=== PATIENT | male | born 1960 | race African-American/Black ===

== ENCOUNTER → 2019-09-26 | Emergency (ER) | payer OTHER ==
[~2019-09-26] VITALS: Ht 188 cm; Wt 104.3 kg
[2019-09-26 13:40] VITALS: BP 142/78
--- NOTE | 2019-09-26 13:40 | NUR ---
ED Nurse Note: Pt was brought in to ED from [facility] d/t s/p unwitnessed fall today at 1100. Pt is AOx1, disoriented but calm. Per EMS, skin's intact/no bleeding noted post fall. Fall happened when pt was on wheelchair, pt landed affecting his RT lateral side. Pt's a FULL CODE. Has hx of CVA with RT side weakness. Placed on bed, safety measures in placed.
--- NOTE | 2019-09-26 13:47 | NUR ---
ED Nurse Note: ERPA at bedside.
--- NOTE | 2019-09-26 14:15 | NUR ---
ED Nurse Note: pt taken to CT via [facility].
--- NOTE | 2019-09-26 15:15 | Diagnostic Imaging Report ---
EXAM: CT CT Head no Contrast INDICATION: Trauma and head pain. TECHNIQUE: Axial images of the brain were obtained with subsequent sagittal and coronal reformats. All CT scans at this facility are performed using dose modulation techniques as appropriate to a performed exam including the following: automated exposure control with adjustment of the mA and/or kV according to patient size. COMPARISON STUDY: None. RADIATION DOSE: CTDIvol: 53.4 mGy DLP: 1018.8 mGy-cm Dose information generated by the CT scanner is available in PACS. FINDINGS: There is age related senescent changes with ventricular and sulcal prominence. White matter micro-ischemic changes noted. There is a small scalp hematoma noted at the right parietal vertex. There is no acute large territory cortical infarct, hemorrhage, mass effect or shift. Small old lacunar infarct noted in the left aspect of the kel. Punctate cortical calcification right frontal lobe likely related to old infection. Ventricles and cisterns as well as brainstem and posterior fossa appear unremarkable. The sellar region is normal. There is minimal fluid in the ethmoid sinus. Mastoid air cells and bony calvarium are intact. IMPRESSION: Age related senescent changes. No acute intracranial traumatic injury. Old lacunar infarcts left aspect of the kel. Punctate cortical calcification right frontal lobe likely related to old infection. Small scalp hematoma right parietal vertex.
--- NOTE | 2019-09-26 15:50 | Diagnostic Imaging Report ---
EXAM: CT CT Chest Abdomen Pelvis wo Con INDICATION: Trauma. Chest and abdominal pain. COMPARISON: None TECHNIQUE: Axial images were obtained through the chest, abdomen and pelvis without intravenous contrast. Sagittal and coronal reformats are generated. All CT scans at this facility are performed using dose modulation techniques as appropriate to a performed exam including the following: automated exposure control with adjustment of the mA and/or kV according to patient size. RADIATION DOSE: CTDIvol: 8.8 mGy DLP: 615.6 mGy-cm Dose information generated by the CT scanner is available in PACS. CHEST FINDINGS: Images through the chest limited by respiratory motion artifacts. Mild dependent densities noted in both lungs likely atelectasis. There is scattered bilateral paraseptal emphysema. No alveolar consolidation noted. Cardiac silhouette is within normal limits. There is a small pericardial effusion. There is no pathologic size adenopathy. There is no effusion. Mild degenerative changes of the spine noted. No definite fractures seen ABDOMEN/PELVIS FINDINGS: There is streak artifact through the upper abdomen from the patient's arm position. Liver and spleen are grossly homogeneous. Gallbladder is contracted. The pancreas is unremarkable. Adrenals are normal in morphology. There are low-density cyst noted in the left kidney. No renal stone or hydronephrosis seen bilaterally. There is a G-tube in place. Small bowel loops are nondistended. Increased stool lucencies demonstrated throughout the colon. The appendix is not visualized. There is no free fluid or free air. No pathologic adenopathy demonstrated. There are small dependent radiodensities in the bladder likely small bladder stones. Mild degenerative changes of the lumbar spine and bony pelvis noted. No acute fracture. IMPRESSION: NO CT EVIDENCE OF ACUTE TRAUMATIC INJURY TO THE CHEST, ABDOMEN AND PELVIS. BILATERAL MILD EMPHYSEMATOUS CHANGES. DEPENDENT ATELECTASIS. SMALL PERICARDIAL EFFUSION. G-TUBE IN PLACE. LEFT RENAL CYSTS. SMALL BLADDER STONES.
--- NOTE | 2019-09-26 16:14 | Emergency Room Report ---
History of Present Illness General Chief Complaint: Multiple Trauma/Fall Present Illness HPI 59-year-old male with history of CVA and right-sided weakness brought in by ambulance from [facility] due to fall. Patient had a non-witnessed fall and no head injury is noted. Patient has a slurred speech however that is baseline. Patient is taking a lot of medication including blood thinners. Patient notices some pain upon palpation of the right knee and right femur however is atraumatic all over. Due to patient not being a good historian and not communicate well multiple CT scans are ordered. Patient appears to be stable the whole time with stable vital signs. Full range of motion noted. Obvious weakness in the right side of body noted which is not new status post CVA. 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 COVID-19 Screening: Negative COVID-19 COVID-19 Testing Source: [employer] [facility] Patient History Past Medical History: see triage record Past Surgical History: none Pertinent Family History: none Immunizations: UTD Reviewed Nursing Documentation: PMH: Agreed; PSxH: Agreed Review of Systems All Other Systems: negative except mentioned in HPI Physical Exam Vital Signs Date Time Temp Pulse Resp B/P (MAP) Pulse Ox O2 Delivery O2 Flow Rate FiO2 09/26/19 13:34 96 18 142/78 (99) 96 Sp02 EP Interpretation: reviewed, normal General Appearance: no apparent distress, alert, GCS 15, non-toxic Head: normocephalic, atraumatic Eyes: bilateral eye normal inspection, bilateral eye PERRL ENT: hearing grossly normal, normal pharynx, no angioedema, normal voice Neck: full range of motion, supple, no meningismus, supple/symm/no masses Respiratory: chest non-tender, lungs clear, normal breath sounds, no rhonchi, no retraction, no wheezing, speaking full sentences Cardiovascular #1: regular rate, rhythm, no edema, no murmur Cardiovascular #2: 2+ carotid (R), 2+ carotid (L), 2+ radial (R), 2+ radial (L) , 2+ femoral (R), 2+ femoral (L), 2+ dorsalis pedis (R), 2+ dorsalis pedis (L) Gastrointestinal: normal bowel sounds, non tender, soft, non-distended, no guarding, no rebound Rectal: deferred Genitourinary: no CVA tenderness Musculoskeletal: back normal, pelvis stable, no lower extremity edema, non- tender Neurologic: alert, motor strength/tone normal, oriented x3, sensory intact, responsive, speech normal Psychiatric: depressed affect Reflexes: 2+ bicep (R), 2+ bicep (L), 2+ tricep (R), 2+ tricep (L), 2+ knee (R) , 2+ knee (L), 2+ ankle (R), 2+ ankle (L) Skin: no rash Lymphatic: no adenopathy Medical Decision Making PA Attestation All diagnoses and treatment plans were reviewed and discussed with my supervising physician Dr. Saleh Diagnostic Impression: Primary Impression: Pelvic contusion Additional Impression: Knee contusion ER Course 59-year-old male with history of CVA and right-sided weakness brought in by ambulance from [facility] due to fall. Patient had a non-witnessed fall and no head injury is noted. Patient has a slurred speech however that is baseline. Patient is taking a lot of medication including blood thinners. Patient notices some pain upon palpation of the right knee and right femur however is atraumatic all over. Due to patient not being a good historian and not communicate well multiple CT scans are ordered. Patient appears to be stable the whole time with stable vital signs. Full range of motion noted. Obvious weakness in the right side of body noted which is not new status post CVA. Ddx considered but are not limited to: Knee sprain, strain, fracture, contusion , meniscus tear injury, pelvic fracture versus contusion, femur fracture versus contusion, hip contusion versus hematoma Vital signs: are WNL, pt. is afebrile H&PE are most consistent with: Pelvic contusion, knee contusion, head contusion ORDERS: Knee x-ray, femur x-ray, CT chest abdomen pelvis no contrast, CT head no contrast, ER intervention: none DISCHARGE: At this time pt. is stable for d/c to home. Will provide printed patient care instructions, and any necessary prescriptions. Care plan and follow up instructions have been discussed with the patient prior to discharge. Patient is stable and no fracture noted nothing acute and to be discharged to [facility] facility also follow-up with primary doctor at this time no further evaluation needed patient baseline of slurred speech and unilateral weakness has not changed Other X-Ray Diagnostic Results Other X-Ray Diagnostic Results #1: X-Ray ordered: knee Xray # of Views/Limited Vs Complete: 3 View Indication: Pain EP Interpretation: Yes PA Xray: Interpretation reviewed, by supervising MD, and agrees with findings. Interpretation: no dislocation, no soft tissue swelling, no fractures Impression: No acute disease Electronically Signed by: Yanira Treviño PA-C Other X-Ray Diagnostic Results #2: X-Ray ordered: femur Xray # of Views/Limited Vs Complete: 2 View Indication: Pain EP Interpretation: Yes PA Xray: Interpretation reviewed, by supervising MD, and agrees with findings. Interpretation: no dislocation, no soft tissue swelling, no fractures Impression: No acute disease Electronically Signed by: Yanira Treviño PA-C CT/MRI/US Diagnostic Results CT/MRI/US Diagnostic Results #1: Imaging Test Ordered: CT head no contrast Impression No intracranial bleeding, no skull fracture, small hematoma noted which appears to be chronic CT/MRI/US Diagnostic Results #2: Imaging Test Ordered: CT Chest/abd/pelvis non contrast Impression No rib fracture, no hip fracture, nothing acute noted Last Vital Signs Date Time Temp Pulse Resp B/P (MAP) Pulse Ox O2 Delivery O2 Flow Rate FiO2 09/26/19 13:40 18 142/78 96 09/26/19 13:40 96 Disposition: SNF Condition: Stable Patient Instructions: Contusion, [id number] Additional Instructions: Take medication as directed, follow-up with your primary doctor, at this time no fracture noted and patient is stable. Patient is slurring however that is his baseline based on his story of CVA and right-sided weakness. Patient to follow-up with primary doctor in this regard. Yanira Foley Sep 26, 2019 16:14
--- NOTE | 2019-09-26 16:45 | Diagnostic Imaging Report ---
EXAM: X-RAY XRAY Femur 2v L CLINICAL HISTORY: Trauma with leg pain. COMPARISON: None FINDINGS: Total of 2 views of the left femur were obtained. There is diffuse osteopenia. There is no fracture, bony lesions or erosions. Joint spaces are unremarkable. Surrounding soft tissue is normal. IMPRESSION: NO FRACTURE.
--- NOTE | 2019-09-26 17:17 | Diagnostic Imaging Report ---
EXAM: X-RAY XRAY Knee 3v R CLINICAL HISTORY: Trauma with knee pain. COMPARISON: None FINDINGS: Total of 3 views of the right knee were obtained. There is diffuse moderate to severe osteopenia. No discrete fracture is identified. Alignment of the knee appears anatomic. There is no joint effusion. Surrounding soft tissue is normal. IMPRESSION: NO DISCRETE FRACTURE SEEN. SEVERE OSTEOPENIA
--- NOTE | 2019-09-26 17:18 | Diagnostic Imaging Report ---
EXAM: X-RAY XRAY Femur 2v R CLINICAL HISTORY: Trauma with leg pain. COMPARISON: None FINDINGS: Total of 2 views of the right femur were obtained. Alignment is anatomic. There is no fracture, bony lesions or erosions. Joint spaces are unremarkable. Surrounding soft tissue is normal. IMPRESSION: NO FRACTURE.
--- NOTE | 2019-09-26 17:29 | NUR ---
ED Nurse Note: report was given to PRIYANKA Weiss from [facility].
[2019-09-26 18:00] VITALS: BP 142/78
== END | disposition home or self-care (01) ==
LOC: EDBD 13:32 → EMR 13:55
DX: S80.01XA Contusion of right knee, initial encounter (principal); S30.0XXA Contusion of lower back and pelvis, initial encounter; W19.XXXA Unspecified fall, initial encounter; Y92.129 Unspecified place in nursing home as the place of occurrence of the external cause; G81.91 Hemiplegia, unspecified affecting right dominant side
CPT/HCPCS: 70450; 71250; 73552; 73562; 74176; Z7502; 99284